=== PATIENT | female | born 1975 | race Caucasian/White ===

== ENCOUNTER 2024-08-19 06:30 | Day surgery (SDC) | payer OTHER ==
[~2024-08-19] VITALS: Ht 162.6 cm; Wt 55.3 kg
[2024-08-19] MEDS ORDERED: SIMETHICONE 40 MG/0.6 ML ML ONE (07:37)
[2024-08-19] MEDS ORDERED: fentaNYL CITRATE/PF 100 MCG/2 ML AMP ONE (07:37)
[2024-08-19] MEDS ORDERED: MIDAZOLAM HCL 5 MG/5 ML VIAL ONE ×2 (07:38→08:51)
[2024-08-19] MEDS ORDERED: ONDANSETRON HCL 4 MG/2 ML VIAL ONE (08:39)
[2024-08-19 14:02] VITALS: BP_SYST 117; PULSE 86; RESP 18; TEMP 97.8; O2SAT 100
== END 2024-08-19 10:00 | disposition home or self-care (01) ==
LOC: SDS 06:30 → SMU 06:38 → SDS 10:00
PROVIDERS: ATTEND Internal Medicine
DX: Z12.11 Encounter for screening for malignant neoplasm of colon (principal); K57.30 Diverticulosis of large intestine without perforation or abscess without bleeding; Z91.040 Latex allergy status; Z88.8 Allergy status to other drugs, medicaments and biological substances; Z79.899 Other long term (current) drug therapy
CPT/HCPCS: 45378; 99152; G0378; J2250; J2405; J3010